=== PATIENT | female | born 1965 | race Caucasian/White ===

== ENCOUNTER 2017-06-30 06:37 | Emergency (ER) | payer MEDICAID ==
[~2017-06-30] VITALS: Ht 157.5 cm; Wt 43.1 kg
[2017-06-30 06:51] VITALS: Ht 157.5 cm; Wt 43.1 kg
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
--- NOTE | 2017-06-30 07:25 | NUR ---
MSE PERFORMED BY DR FRANKS.
--- NOTE | 2017-06-30 07:50 | NUR ---
REMOVED DRESSING FRMO LOWER MID ABDOMEN. WOUND IS DEHISCED, AND PINK IN COLOR, NO SWELLING, OR ERYTHEMA NOTED. GREEN STOOL DRAINAGE FROM BAG NOTED ON STOOL. OSTOMY BAG HAS LEAK AT SKIN TO BAG AREA DUE TO BAG NOT STICKING DIRRECTLY TO SKIN, POSSIBLY FROM SKIN BEING WET AND BAG NOT STICKING TO SKIN.
--- NOTE | 2017-06-30 08:03 | NUR ---
JIG GRINDER SET UP OPERATOR CATIE, AND HILTON HUFF AT BEDSIDE TO CHANGE OSTOMY BAG.
--- NOTE | 2017-06-30 08:29 | NUR ---
CLEANED PT OSTOMY AND WOUND CARE PERFORMED, APPLIED NEW OSTOMY WAFER, SKIN AND STOMA CLEANED PRIOR TO APPLICATION, DUE TO PT ABDOMINAL WOUND WAFER NEEDED TO BE CUT PER PT SHE HAS HAD ISSUE WITH STOOL TRAVELING OUTSIDE OF OSTOMY AND BENEATH WAFER DUE TO IT NOT FITTING PROPERLY WITH WOUND
[2017-06-30 09:01] LABS: BASOPHIL % 0.3 % (0-2)
[2017-06-30 09:10] LABS: CALCIUM 9.3 mg/dL (8.5-10.1); CARBON DIOXIDE 24.3 mmol/L (21-32); CHLORIDE SERUM 102 mmol/L (98-107); CREATININE SERUM 0.6 mg/dL (0.6-1.0); GFR1 > 60 mL/min; GLUCOSE SERUM 109 mg/dL (74-106); POTASSIUM SERUM 3.7 mmol/L (3.5-5.1); SODIUM SERUM 138 mmol/L (136-145)
--- NOTE | 2017-06-30 09:11 | NUR ---
UNABLE TO ESTABLISH IV LINE. PT IS A DIFFICULT STICK. MULTIPLE ATTEMPTS FAILED. PER DR FRANKS,IV ESTABLISHMENT NOT NEEDED IF UNABLE TO ACCESS.
[2017-06-30 09:12] LABS: PLATELET COUNT 658 x10^3mcL (130-400); RED CELL DISTRIBUTION WIDTH 15.2 % (11.5-14.5)
--- NOTE | 2017-06-30 09:13 | NUR ---
YFN HADDAD RN SPEAKING WITH PT AND PTS SONS.
[2017-06-30 09:14] LABS: ALBUMIN 2.9 g/dL (3.4-5.0); ALKALINE PHOSPHATASE 265 U/L (46-116); ALT/SGPT 11 U/L (14-59); AST/SGOT 7 U/L (15-37); BILIRUBIN TOTAL 0.4 mg/dL (0.20-1.00); CHOLESTEROL 217 mg/dL (<200); CHOLESTEROL/HDL RATIO 3.7; HDL CHOLESTEROL 59 mg/dL (40-60); LIPASE 492 IU/L (73-393); TOTAL PROTEIN, SERUM 7.5 g/dL (6.4-8.2); TRIGLYCERIDES 151 mg/dL (<150)
[2017-06-30 09:20] LABS: UA SPECIFIC GRAVITY 1.025 (1.005-1.035); microscopic required? YES; urine erythrocyte 1+ (NEGATIVE)
[2017-06-30 09:25] LABS: FREE T4 1.15 ng/dL (0.76-1.46); FREE THYROXINE INDEX 2.6 ug/dL (1.4-4.5); T4(THYROXINE) 7.8 ug/dL (4.7-13.3)
--- NOTE | 2017-06-30 09:26 | NUR ---
SPOKE WITH KATHARINA COHEN REGARDING SUPPLIES FOR OSTOMY BAG, INFORMED ME SHE IS WORKING ON IT AND WILL GIVE CALL BACK.
[2017-06-30 09:34] LABS: MAGNESIUM 2.1 mg/dL (1.8-2.4); PHOSPHOROUS 3.6 mg/dL (2.5-4.9)
[2017-06-30 09:36] LABS: AMPHETAMINE QUAL UR NONE DETECTED (NEG <=1000)
[2017-06-30 09:38] LABS: T3 TOTAL 1.22 ng/mL
--- NOTE | 2017-06-30 09:50 | NUR ---
WET TO DRY DRESSING APPLIED ON ABDOMINAL INCISION, AND ABDOMINAL DRESSING PLACED OVER AND TAPES WITH SILK TAPE. NEW OSTOMY BAG HAS GREEN STOOL IN BAG.
--- NOTE | 2017-06-30 11:13 | NUR ---
PER PT, PTS SON WILL PICK HER UP IN ABOUT 1.5 HRS.
--- NOTE | 2017-06-30 11:35 | NUR ---
PER KATHARINA COHEN, SHE SPOKE WITH PTS QUARTER BACKER AND MARKED PT A HIGH RISK CASE. KATHARINA WILL WAIT FOR CALL BACK FROM PTS QUARTER BACKER.
--- NOTE | 2017-06-30 12:17 | NUR ---
AWAITING PTS SON DELANEY TO ARRIVE.
[2017-06-30 13:16] VITALS: BP 110/73
--- NOTE | 2017-06-30 13:17 | NUR ---
PT GIVEN EXTRA SUPPLIES FOR ABDOMINAL DRESSSING CHANGE, AND FOR OSTOMY BAG CHANGE. PT ALSO GIVEN NEW UNDERWEAR, AND SCRUB BOTTOMS FOR DC.
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
== END 2017-06-30 13:16 | disposition home or self-care (01) ==
LOC: ED 06:37 → DU 08:07 → ED 08:07
PROVIDERS: Family Medicine; Specialist
DX: G89.18 Other acute postprocedural pain (principal); N39.0 Urinary tract infection, site not specified; Z88.5 Allergy status to narcotic agent; Z88.8 Allergy status to other drugs, medicaments and biological substances
CPT/HCPCS: 83880; 84439; J7030